=== PATIENT | female | born 1955 | race Caucasian/White ===

== ENCOUNTER → 2018-05-25 | Outpatient (CLI) | payer OTHER ==
--- NOTE | 2018-05-25 09:05 | CT ---
EXAMINATION TYPE: CT brain wo/w con DATE OF EXAM: 05/25/2018 COMPARISON: None HISTORY: 62-year-old female Syncope TECHNIQUE: Examination was done in axial plane without intravenous contrast. Coronal and sagittal r econstructions performed. CT DLP: 1955.40 mGycm Automated exposure control for dose reduction was used. FINDINGS: There is no evidence of acute intracranial hemorrhage, acute ischemic changes, mass, mass-effect, or extra-axial fluid collection. There is no effacement of cerebral sulci or basal subarachnoid cister ns. There is no hydrocephalus. There is no midline shift. Rivera-white matter distinction is preserv ed. 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 The dural venous sinuses are patent no enhancing intracranial lesions. Tiny polyp or mucosal retention cyst anterior right maxillary sinus. Paranasal sinuses and mastoid ai r cells are otherwise well pneumatized. Orbits and globes are intact. IMPRESSION: No acute intracranial abnormality seen. No enhancing intracranial lesions. Old deep white matter infa rct on the left.
--- NOTE | 2018-05-25 09:12 | US ---
EXAMINATION TYPE: US carotid duplex BILAT DATE OF EXAM: 05/25/2018 COMPARISON: NONE CLINICAL HISTORY: R55 Syncope. HTN controlled with meds, No hx of TIA. Patient states her head will start to shake involuntary. EXAM MEASUREMENTS: RIGHT: Peak Systolic Velocity (PSV) cm/sec ----- Right CCA: 61.6 ----- Right ICA: 72.9 ----- Right ECA: 61.6 ICA/CCA ratio: 1.2 RIGHT: End Diastole cm/sec ----- Right CCA: 21.5 ----- Right ICA: 26.7 ----- Right ECA: 7.5 LEFT: Peak Systolic Velocity (PSV) cm/sec ----- Left CCA: 66.8 ----- Left ICA: 60.9 ----- Left ECA: 53.1 ICA/CCA ratio: 0.9 LEFT: End Diastole cm/sec ----- Left CCA: 26.7 ----- Left ICA: 22.5 ----- Left ECA: 5.4 VERTEBRALS (direction of flow): Right Vertebral: Antegrade Left Vertebral: Antegrade Rhythm: Normal No plaque, elevated velocities, thickened ocasio or significant stenosis. IMPRESSION: 1. Mild intimal thickening without significant flow-limiting stenosis. Criteria for Assigning % of Stenosis / Diameter reduction (Estimation based on the indirect measurements of the internal carotid artery velocities (ICA PSV). 1. Normal (no stenosis)=ICA PSV < 125 cm/s: ratio < 2.0: ICA EDV<40 cm/s. 2. Less than 50% stenosis=ICA PSV < 125 cm/s: ratio < 2.0: ICA EDV<40 cm/s. 3. 50 to 69% stenosis=ICA PSV of 125 to 230 cm/s: ration 2.0 ? 4.0: ICA EDV 40-100 cm/s. 4. Greater than 70% stenosis to near occlusion= ICA PSV > 230 cm/s: ratio > 4.0: ICA EDV > 100 cm/s. 5. Near occlusion= ICA PSV velocities may be low or undetectable: variable ratio and ICA EDV. 6. Total occlusion=unable to detect flow.
== END | disposition home or self-care (01) ==
LOC: RADCTMAIN 07:19
PROVIDERS: ATTEND Family Medicine
DX: I77.89 Other specified disorders of arteries and arterioles (principal); R55 Syncope and collapse
CPT/HCPCS: 93880; 70470; Q9967

== ENCOUNTER → 2022-07-02 | Outpatient (CLI) | payer MEDICARE ==
--- NOTE | 2022-07-02 10:52 | XR ---
EXAMINATION TYPE: XR sinus DATE OF EXAM: 07/02/2022 CLINICAL HISTORY: pain Four views of the paranasal sinuses are submitted. Paranasal sinuses demonstrate normal aeration and development. No air-fluid levels are seen. There is no evidence for mucosal thickening. Nasal sep blossom is midline. No evidence for bony destructive process. IMPRESSION: Unremarkable evaluation of the paranasal sinuses.
--- NOTE | 2022-07-02 11:10 | XR ---
EXAMINATION TYPE: XR Hip Bilateral and AP pelvis DATE OF EXAM: 07/02/2022 COMPARISON: NONE HISTORY: LOW BACK PAIN BILAT HIP PAIN TECHNIQUE: A single AP view of the pelvis is obtained. Two views of the bilateral hips are obtained. FINDINGS: There is no acute fracture/dislocation evident in the pelvis. The hip and sacroiliac join ts appear symmetric and unremarkable. The overlying soft tissue appears unremarkable. Two views of bilateral hips show no acute fracture or dislocation. No focal lytic or sclerotic lesio n seen in the proximal bilateral femur. The overlying soft tissue is unremarkable. Mild degenerativ e joint space narrowing seen bilaterally. IMPRESSION: There is no acute fracture or dislocation in the pelvis or bilateral hips
--- NOTE | 2022-07-02 11:11 | XR ---
EXAMINATION TYPE: XR lumbosacral spine min 4V DATE OF EXAM: 07/02/2022 CLINICAL HISTORY: pain COMPARISON: NONE TECHNIQUE: Frontal, lateral, and oblique images of the lumbar spine are obtained. FINDINGS: There are 5 lumbar type vertebral bodies identified. The lumbar spine shows satisfactory alignment without evidence of acute fracture or dislocation. Vertebral body heights are within normal limits. Disc spaces are well preserved. The overlying soft tissue appears unremarkable. IMPRESSION: No acute fracture or dislocation is seen in the lumbar spine.ICD 10 NO FRACTURE, INITIAL EVALUATION
== END | disposition home or self-care (01) ==
LOC: RADXRMAIN 09:30
PROVIDERS: ATTEND Family Medicine
DX: M54.51 Vertebrogenic low back pain (principal); J30.0 Vasomotor rhinitis
CPT/HCPCS: 70220; 72110; 73521